=== PATIENT | female | born 1965 | race Caucasian/White ===

== ENCOUNTER 2017-04-18 02:17 | Emergency (ER) | payer MEDICAID, SELFPAY ==
[2017-04-18 02:19] VITALS: BP 120/78; PULSE 96; RESP 16; TEMP 36.8; O2SAT 96; BMI 29.5
--- NOTE | 2017-04-18 02:33 | XR_ITS ---
XR chest portable Patient Age: 51 years: Female HISTORY: ITS.REASON: CHEST PAIN Chest pain started yesterday previous cardiac stents. Smoker. TECHNIQUE: AP portable upright chest COMPARISON : Previous portable CXR film January 2017. Also May 2016. 2 view CXR FINDINGS The lungs appear well expanded and clear with no active disease.. Elsa and mediastinal structures satisfactory. The heart appears slightly larger than previous study but within WNL & upper normal size. Lung markings are slightly more evident towards the bases but this is similar to previous studies with nothing definitely acute quality assurance monitor body leads are in place. No vascular congestion. No CHF. No pleural effusion. No pneumothorax. Chest wall unremarkable... A chest film IMPRESSION: - Stable chest nothing definitely acute . Heart upper normal size.
[2017-04-18 02:46] LABS: Basophils # 0.1 K/mm3 (0-0.2); Basophils % 0.6 % (0.1-2.0); Eosinophils # 0.1 K/mm3 (0.0-0.4); Eosinophils % 1.2 % (0.1-12.0); Hematocrit 43.6 % (37.0-47.0); Lymphocytes # 2.9 K/mm3 (0.7-4.5); Lymphocytes % 35.2 K/mm3 (10-50); Mean Corpuscular HGB Conc 34.3 g/dL (31.8-35.4); Mean Corpuscular Hemoglobin 30.7 pg (27.0-31.2); Mean Corpuscular Volume 89.4 fl (81-99); Mean Platelet Volume 8.9 fl (7.4-10.4); Monocytes # 0.5 K/mm3 (0.1-1.0); Monocytes % 5.5 % (1.7-9.3); Neutrophils # 4.7 K/mm3 (1.8-7.8); Neutrophils % 57.5 % (37.0-80.0); Platelet Count 200 K/mm3 (142-424); Red Blood Count 4.88 M/mm3 (4.20-5.40); Red Cell Distribution Width 13.1 % (11.5-17.5); White Blood Count 8.2 K/mm3 (4.8-10.8)
--- NOTE | 2017-04-18 03:05 | PC.NURSE ---
CRITICAL LAB VALUE RECIEVED FROM COLETTE LOYOLA IN LAB. GLUCOSE 412. DR PROCTOR NOTIFIED
[2017-04-18 03:12] LABS: Alanine Aminotransferase 29 U/L (12-78); Albumin Level 3.4 gm/dL (3.4-5.0); Alkaline Phosphatase 96 U/L (46-116); Anion Gap 12.9 mEq/L (5-15); Aspartate Amino Transferase 14 U/L (15-37); Bilirubin,Total 0.4 mg/dL (0.2-1.0); Blood Urea Nitrogen 14 mg/dL (7-18); CKMB Relative Index 3.4 U/L (0-4.0); Calcium 8.3 mg/dL (8.5-10.1); Carbon Dioxide 28 mmol/L (21.0-32.0); Chloride 98 mmol/L (98-107); Creatine Kinase 47 U/L (26-192); Creatine Kinase MB 1.6 mg/ml (0.0-3.6); Creatinine Clearance Estimated 96 mL/min (0-300); Creatinine,Serum 0.87 mg/dL (0.55-1.02); Estimated Glomerular Filt Rate 69 ml/min (>60); GFR (African American) 84 ML/MIN (>60); Globulin 3.4 gm/dl (1.3-3.2); Potassium 3.9 mmoL/L (3.5-5.1); Sodium 135 mmol/L (136-145); Total Protein,Serum 6.8 gm/dL (6.4-8.2); Troponin I 0.03 ng/ml (0.00-0.06)
[2017-04-18 03:14] LABS: Glucose 412 mg/dL (74-106)
--- NOTE | 2017-04-18 03:49 | HMH.EDCP ---
ED Disposition Clinical Impression: Chest pain Qualifiers: Chest pain type: precordial pain Qualified Code(s): R07.2 - Precordial pain Diabetes Qualifiers: Diabetes mellitus type: type 1 Diabetes mellitus complication status: with unspecified complications Qualified Code(s): E10.8 - Type 1 diabetes mellitus with unspecified complications Disposition: Home, Self-Care Condition on Discharge: Good Instructions: DI for Chest Pain Additional Instructions: see card wednesday 900 am Referrals: Ervin Alexander MD [Primary Care Provider] - - Critical Care Critical Care Time: No Attestation: On 04/18/17, the high probability of a clinically significant, sudden or life threatening deterioration of the following system(s) required my full and direct attention, intervention and personal management. The time I documented below is in addition to time spent performing reported procedures but includes the following listed in this critical care notation. Medical Decision Making - Medical Records Medical records reviewed: Yes: I reviewed the patient's medical records. Vital Signs: 04/18/17 02:19 Temperature 98.3 F Temperature Source Oral Pulse Rate [Right Radial] 96 H Respiratory Rate 16 Blood Pressure [Right Arm] 120/78 Blood Pressure Mean [Right Arm] 92 Blood Pressure Source [Right Arm] Automatic Cuff Blood Pressure Position [Right Arm] Supine 02 Sat by Pulse Oximetry 96 Oxygen Delivery Method Room Air - Lab Data Lab results reviewed: Yes: I reviewed the patient's lab results. Lab Results 04/18/17 02:37: WBC 8.2, RBC 4.88, Hgb 15.0, Hct 43.6, MCV 89.4, MCH 30.7, MCHC 34.3, RDW 13.1, Plt Count 200, MPV 8.9, Neut % (Auto) 57.5, Lymph % (Auto) 35.2, [place] % (Auto) 5.5, Eos % (Auto) 1.2, Baso % (Auto) 0.6, Neut # (Auto) 4.7, Lymph # (Auto) 2.9, [place] # (Auto) 0.5, Eos # (Auto) 0.1, Baso # (Auto) 0.1 04/18/17 02:37: Sodium 135 L, Potassium 3.9, Chloride 98, Carbon Dioxide 28, Anion Gap 12.9, BUN 14, Creatinine 0.87, Estimated Creat Clear 96, Estimated GFR 69, Est GFR ( Amer) 84, Glucose 412 H*, Calcium 8.3 L, Total Bilirubin 0.4, AST 14 L, ALT 29, Alkaline Phosphatase 96, Total Creatine Kinase 47, CK-MB (CK-2) 1.6, CK-MB (CK-2) Rel Index 3.4, Troponin I 0.03, Total Protein 6.8, Albumin 3.4, Globulin 3.4 H, Albumin/Globulin Ratio 1.0 L Result diagrams: 04/18/17 02:37 04/18/17 02:37 Orders (Tests/Meds): ED MEDICATIONS Discontinued Medications Generic Name Dose Route Start Last Admin Trade Name Freq PRN Reason Stop Dose Admin Promethazine HCl 12.5 mg 04/18/17 04:02 04/18/17 04:09 Phenergan 25mg/Ml 1ml Vial IV 04/18/17 04:03 12.5 mg ONCE ONE Administration Sodium Chloride 25 ml 04/18/17 04:02 Sod Chloride 0.9% 25ml Bag IV 04/18/17 04:03 ONCE ONE ORDERS Category Date Time Status XR chest portable Stat Exams 04/18/17 02:33 Taken ECG Request by /Nse Stat Y 04/18/17 02:33 Ordered - Radiology Data #1 Image(s): Chest Image Reviewed: Yes I reviewed the patient's radiology image Preliminary Findings: Normal/NAD - ECG Data Tracing #1 I reviewed this ECG and interpreted as documented below: Normal Sinus Rhythm: Yes Ischemic changes: non-specific ST-T wave changes - [place] Inquiry Pt receiving controlled substance: No Chest Pain HPI - General Chief Complaint: Chest Pain Stated Complaint: CHEST PAIN Time Seen by Provider: 04/18/17 03:49 Mode of Arrival: Ambulatory Source of Information: Patient, Significant Other, Medical Record Limitations: No Limitations Description of Symptoms (Recalled from ER Triage Doc. by RN): CHEST PAIN , NAUSEA,sob - History of Present Illness HPI narrative: this wf with episode of chest pain and sob this am - she has had stents in past - MD complaint: chest pain indicative of cardiac Onset (ago): hour(s) Duration: now resolved Activity at onset: during rest Pain location: substernal Severity: moderate Quality
--- NOTE | 2017-04-18 04:00 | ED_ITS ---
ED Disposition Clinical Impression: Chest pain Qualifiers: Chest pain type: precordial pain Qualified Code(s): R07.2 - Precordial pain Diabetes Qualifiers: Diabetes mellitus type: type 1 Diabetes mellitus complication status: with unspecified complications Qualified Code(s): E10.8 - Type 1 diabetes mellitus with unspecified complications Disposition: Home, Self-Care Condition on Discharge: Good Instructions: DI for Chest Pain Additional Instructions: see card wednesday 900 am Referrals: Ervin Alexander MD [Primary Care Provider] - - Critical Care Critical Care Time: No Attestation: On 04/18/17, the high probability of a clinically significant, sudden or life threatening deterioration of the following system(s) required my full and direct attention, intervention and personal management. The time I documented below is in addition to time spent performing reported procedures but includes the following listed in this critical care notation. Medical Decision Making - Medical Records Medical records reviewed: Yes: I reviewed the patient's medical records. Vital Signs: 04/18/17 02:19 Temperature 98.3 F Temperature Source Oral Pulse Rate [Right Radial] 96 H Respiratory Rate 16 Blood Pressure [Right Arm] 120/78 Blood Pressure Mean [Right Arm] 92 Blood Pressure Source [Right Arm] Automatic Cuff Blood Pressure Position [Right Arm] Supine 02 Sat by Pulse Oximetry 96 Oxygen Delivery Method Room Air - Lab Data Lab results reviewed: Yes: I reviewed the patient's lab results. Lab Results 04/18/17 02:37: WBC 8.2, RBC 4.88, Hgb 15.0, Hct 43.6, MCV 89.4, MCH 30.7, MCHC 34.3, RDW 13.1, Plt Count 200, MPV 8.9, Neut % (Auto) 57.5, Lymph % (Auto) 35.2 , [place] % (Auto) 5.5, Eos % (Auto) 1.2, Baso % (Auto) 0.6, Neut # (Auto) 4.7, Lymph # (Auto) 2.9, [place] # (Auto) 0.5, Eos # (Auto) 0.1, Baso # (Auto) 0.1 04/18/17 02:37: Sodium 135 L, Potassium 3.9, Chloride 98, Carbon Dioxide 28, Anion Gap 12.9, BUN 14, Creatinine 0.87, Estimated Creat Clear 96, Estimated GFR 69, Est GFR ( Amer) 84, Glucose 412 H*, Calcium 8.3 L, Total Bilirubin 0.4, AST 14 L, ALT 29, Alkaline Phosphatase 96, Total Creatine Kinase 47, CK-MB (CK-2) 1.6, CK-MB (CK-2) Rel Index 3.4, Troponin I 0.03, Total Protein 6.8, Albumin 3.4, Globulin 3.4 H, Albumin/Globulin Ratio 1.0 L Result diagrams: 04/18/17 02:37 04/18/17 02:37 Orders (Tests/Meds): ED MEDICATIONS Discontinued Medications Generic Name Dose Route Start Last Admin Trade Name Freq PRN Reason Stop Dose Admin Promethazine HCl 12.5 mg 04/18/17 04:02 04/18/17 04:09 Phenergan 25mg/Ml 1ml Vial IV 04/18/17 04:03 12.5 mg ONCE ONE Administration Sodium Chloride 25 ml 04/18/17 04:02 Sod Chloride 0.9% 25ml Bag IV 04/18/17 04:03 ONCE ONE ORDERS Category Date Time Status XR chest portable Stat Exams 04/18/17 02:33 Taken ECG Request by /Nse Stat Y 04/18/17 02:33 Ordered - Radiology Data #1 Image(s): Chest Image Reviewed: Yes I reviewed the patient's radiology image Preliminary Findings: Normal/NAD - ECG Data Tracing #1 I reviewed this ECG and interpreted as documented below: Normal Sinus Rhythm: Yes Ischemic changes: non-specific ST-T wave changes - [place] Inquiry Pt receiving controlled substance: No [place]
[2017-04-18 04:39] VITALS: BP 116/83; PULSE 91; RESP 18; O2SAT 97
[2017-04-18 04:47] VITALS: BP 146/79; PULSE 82; RESP 18; TEMP 37.1; O2SAT 99
== END 2017-04-18 04:49 | disposition home or self-care (01) ==
PROVIDERS: Emergency Provider Emergency Medicine; Family Provider Emergency Medicine; PCP Emergency Medicine
DX: R07.2 Precordial pain (principal); E10.8 Type 1 diabetes mellitus with unspecified complications; Z79.84 Long term (current) use of oral hypoglycemic drugs; I10 Essential (primary) hypertension; F17.210 Nicotine dependence, cigarettes, uncomplicated
CPT/HCPCS: 71045; 80053; 82550; 82553; 84484; 85025; 93005; 93041; 96374; 99283

== ENCOUNTER → 2017-06-18 14:37 | Outpatient (REF) | payer MEDICAID, SELFPAY | LOC: LAB 14:37 | PROVIDERS: Visit Provider Nurse Practitioner Family | DX: R30.0 Dysuria (principal) | CPT/HCPCS: 87086 ==

== ENCOUNTER → 2018-06-10 12:33 | Outpatient (CLI) | payer MEDICAID, SELFPAY ==
--- NOTE | 2018-06-10 12:43 | US_ITS ---
US Arterial Ankle Brachial Ind History: Claudication, smoker ORDERING PHYSICIAN: Tatiana Almazan PATIENT AGE: 53 years TECHNIQUE: Segmental pressures obtained of both right and left leg. These are compared to brachial blood pressure to yield index at each level sampled including summary FAISAL. The data sheets from the procedure are available in PACS FINDINGS Rest study only performed today No prior studies available for comparison. Blood pressures reported are in millimeters mercury. RIGHT LEG FAISAL = 1.1. RIGHT LEG TBI=.6 Brachial BP: 123 Thigh BP: 137 Calf BP: 128 Ankle PT: 130 Ankle DP : 100 Digit =78 LEFT LEG FAISAL = 1.1 LEFT LEG TBI= .6 Brachial BPD: 117 Thigh BP: 149 Calf BP: 128 Ankle PT:139 Ankle DP: 71 Digit = 68 Pulses and waveforms: Waveforms are normal. The dorsalis views both are slightly diminished IMPRESSION: The ABIs as reported above are within normal limits. Waveforms are also unremarkable. The dorsalis pedis pulses are diminished.
== END ==
PROVIDERS: PCP Nurse Practitioner Family; Visit Provider Nurse Practitioner Family
DX: I70.213 Atherosclerosis of native arteries of extremities with intermittent claudication, bilateral legs (principal)
CPT/HCPCS: 93922

== ENCOUNTER → 2018-09-27 12:49 | Outpatient (CLI) | payer MEDICAID, SELFPAY ==
[2018-09-27 13:08] LABS: Basophils # 0.1 K/mm3 (0-0.2); Basophils % 0.7 % (0.1-2.0); Eosinophils # 0.2 K/mm3 (0.0-0.4); Eosinophils % 1.8 % (0.1-12.0); Hematocrit 40.9 % (37.0-47.0); Hemoglobin 13.4 g/dL (12.2-16.2); Lymphocytes # 2.2 K/mm3 (0.7-4.5); Lymphocytes % 25.5 % (10-50); Mean Corpuscular HGB Conc 32.7 g/dL (31.8-35.4); Mean Corpuscular Hemoglobin 28.8 pg (27.0-31.2); Mean Platelet Volume 8.5 fl (7.4-10.4); Monocytes # 0.4 K/mm3 (0.1-1.0); Monocytes % 4.8 % (1.7-9.3); Neutrophils # 5.9 K/mm3 (1.8-7.8); Neutrophils % 67.2 % (37.0-80.0); Platelet Count 270 K/mm3 (142-424); Red Blood Count 4.65 M/mm3 (4.20-5.40); Red Cell Distribution Width 13.4 % (11.5-17.5); White Blood Count 8.7 K/mm3 (4.8-10.8)
[2018-09-27 13:16] LABS: Anion Gap 16.4 mEq/L (5-15); Blood Urea Nitrogen 22 mg/dL (7-18); Calcium 8.8 mg/dL (8.5-10.1); Carbon Dioxide 26 mmol/L (21.0-32.0); Chloride 99 mmol/L (98-107); Creatinine,Serum 1.52 mg/dL (0.55-1.02); Estimated Glomerular Filt Rate 36 ml/min (>60); GFR (African American) 44 ML/MIN (>60); Glucose 128 mg/dL (74-106); Potassium 4.4 mmoL/L (3.5-5.1); Sodium 137 mmol/L (136-145)
--- NOTE | 2018-09-27 14:23 | CT_ITS ---
CT soft tissue neck w con CLINICAL INDICATION: Neck mass ITS.REASON: Gland Enlargement ORDERING PHYSICIAN: Jeison Ramos MD PATIENT AGE: 53 years COMPARISON: None TECHNIQUE: Contrast Used: Axial images obtained with sagittal and coronal reformats. All CT scans at the facility use one or more dose reduction, viz: automated exposure control, ma/kV adjustment per patient size (including targeted exams where dose is matched to indication, i.e. head), or iterative reconstruction technique. FINDINGS: Scattered small lymph nodes are present in the neck. No dominant adenopathy. A BB is placed along the left aspect of the neck to divina the palpable abnormality. There is mild prominence of the adipose tissue deep to the placed BB and there is a small submandibular lymph node just anterior to the placed BB measuring 15 x 9 mm. There is mild prominence of the nasopharyngeal mucosa but no obvious mass. The tonsils are also somewhat prominent on both sides. The epiglottis, glottic region, and subglottic area have an unremarkable appearance as does the thyroid gland. The parotid glands are somewhat prominent on both sides left slightly greater than right. Submandibular glands have an unremarkable appearance. There are mild degenerative changes in the cervical spine. IMPRESSION: 1. No suspicious mass is evident. A small lymph node in the submandibular areas present just anterior to the placed BB in the left neck and may be represent the palpable abnormality. No dominant adenopathy. 2. Prominent parotid glands on both sides left slightly greater than right without discrete mass
== END ==
PROVIDERS: PCP Nurse Practitioner Family; Visit Provider Otolaryngology
DX: K11.1 Hypertrophy of salivary gland (principal)
CPT/HCPCS: 36415; 70491; 80048; 85025; Q9967

== ENCOUNTER 2021-06-11 09:44 | Emergency (ER) | payer MEDICAID, SELFPAY ==
[2021-06-11 09:45] VITALS: BP 129/73; PULSE 110; RESP 16; TEMP 36.8; O2SAT 100; BMI 19.5
--- NOTE | 2021-06-11 10:00 | HMH.EDGENADL ---
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 Follow-up with Dr. Rodriguez, call his office today to make an appointment. He will follow up with your parasite test on your stool. Prescriptions: Gabapentin 300 mg PO BID #30 cap Transmission Status: Received by [facility] Referrals: Ervin Alexander MD [Staff Physician] - - Critical Care Critical Care Time: No Attestation: On 06/11/21, the high probability of a clinically significant, sudden or life threatening deterioration of the following system(s) required my full and direct attention, intervention and personal management. The time I documented below is in addition to time spent performing reported procedures but includes the following listed in this critical care notation. Medical Decision Making - Medical Records Medical records reviewed: Yes: I reviewed the patient's medical records. MR Comment: Reviewed prior prescription history. Filled prescription for ivermectin 03/05/2021. Filled prescription for fluconazole on 04/30/2021. - [place] Inquiry Pt receiving controlled substance: No Vital Signs: 06/11/21 09:45 06/11/21 10:31 06/11/21 12:27 Temperature 98.3 F 98.2 F Temperature Source Oral Oral Pulse Rate 111 H 70 Pulse Rate [Right] 110 H Respiratory Rate 16 20 16 Blood Pressure 131/107 H 137/87 Blood Pressure [Right Arm] 129/73 Blood Pressure Mean 112 Blood Pressure Mean [Right Arm] 91 Blood Pressure Source Automatic Cuff Blood Pressure Source [Right Arm] Automatic Cuff Blood Pressure Position Sitting Blood Pressure Position [Right Arm] Sitting 02 Sat by Pulse Oximetry 100 98 Oxygen Delivery Method Room Air Room Air - Lab Data Lab Results 06/11/21 09:50: Urine Color Yellow, Urine Appearance Clear, Urine pH 5.5, Ur Specific Luck 1.010, Urine Protein Negative, Urine Glucose (UA) 3+, Urine Ketones Negative, Urine Blood 1+, Urine Nitrate Negative, Urine Bilirubin Negative, Urine Urobilinogen 0.2, Ur Leukocyte Esterase Negative, Urine WBC Occasional, Ur Squamous Epith Cells 5-10, Amorphous Sediment Trace, Urine Bacteria 1+ 06/11/21 09:50: Urine Opiates Screen Negative, Urine Methadone Screen Negative, Ur Barbituates Screen Negative, Ur Phencyclidine Scrn Negative, Ur Amphetamines Screen Positive H, U Benzodiazepines Scrn Negative, Urine Cocaine Screen Negative, U Marijuana (THC) Screen Negative 06/11/21 10:40: WBC 9.5, RBC 4.76, Hgb 14.6, Hct 42.5, MCV 89.2, MCH 30.7, MCHC 34.4, RDW 14.2, Plt Count 265, MPV 9.3, Neut % (Auto) 69.3, Lymph % (Auto) 22.7, [place] % (Auto) 4.7, Eos % (Auto) 1.5, Baso % (Auto) 1.8, Neut # (Auto) 6.6, Lymph # (Auto) 2.2, [place] # (Auto) 0.5, Eos # (Auto) 0.1, Baso # (Auto) 0.2, Total Counted 100, Neutrophils % (Manual) 67, Lymphocytes % (Manual) 30, Monocytes % (Manual) 3, Platelet Estimate Normal, RBC Morphology Normal 06/11/21 10:40: Sodium 130 L, Potassium 4.1, Chloride 93 L, Carbon Dioxide 26, Anion Gap 15.1 H, BUN 19 H, Creatinine 0.70, Estimated Creat Clear 82, Estimated GFR 87, Est GFR ( Amer) 106, Glucose 487 H*, Calcium 9.5, Total Bilirubin 1.5 H, AST 24, ALT 23, Alkaline Phosphatase 160 H, Total Protein 7.3, Albumin 4.6, Globulin 2.7, Albumin/Globulin Ratio 1.7 06/11/21 10:40: Plasma/Serum Alcohol < 10 06/11/21 10:40: TSH 2.42, Free T4 Index 3.2 L, Thyroxine (T4) 9.9, T3 Uptake 32 06/11/21 11:48: POC Glucose 263 H Result diagrams: 06/11/21 10:40 06/11/21 10:40 Orders (Tests/Meds): ED MEDICATIONS Discontinued Medications Gene
[2021-06-11 10:05] LABS: Microscopic, Urine URINE MICROSCOPIC (MICROSCOPIC)
[2021-06-11 10:21] LABS: Appearance,Urine CLEAR (Clear); Bilirubin,Urine Negative (Negative); Blood, Urine 1+ (Negative); Color,Urine YELLOW (Yellow); Glucose,Urine (UA) 3+ (Negative); Ketones,Urine Negative (Negative); Leukocyte Esterase,Urine Negative (Negative); Nitrate,Urine Negative (Negative); PH,Urine 5.5 (5.0-8.5); Protein,Urine Negative (Negative); Urobilinogen,Urine 0.2 EU/dl (0.2)
[2021-06-11 10:31] VITALS: BP 131/107; PULSE 111; RESP 20; O2SAT 98
[2021-06-11 10:40] LABS: WBC,Urine Occasional #/hpf (0-3)
[2021-06-11 10:41] LABS: Amorphous Sediment,Urine Trace /lpf; Bacteria,Urine 1+ /lpf
[2021-06-11 10:47] LABS: MANUAL DIFFERENTIAL MANUAL DIFFERENTIAL (MANUAL DIFF)
[2021-06-11 10:53] LABS: Basophils # 0.2 K/mm3 (0-0.2); Basophils % 1.8 % (0.1-2.0); Eosinophils # 0.1 K/mm3 (0.0-0.4); Eosinophils % 1.5 % (0.1-12.0); Hematocrit 42.5 % (37.0-47.0); Hemoglobin 14.6 g/dL (12.2-16.2); Lymphocytes # 2.2 K/mm3 (0.7-4.5); Lymphocytes % 22.7 % (10-50); Mean Corpuscular HGB Conc 34.4 g/dL (31.8-35.4); Mean Corpuscular Hemoglobin 30.7 pg (27.0-31.2); Mean Corpuscular Volume 89.2 fl (81-99); Mean Platelet Volume 9.3 fl (7.4-10.4); Monocytes # 0.5 K/mm3 (0.1-1.0); Monocytes % 4.7 % (1.7-9.3); Neutrophils # 6.6 K/mm3 (1.8-7.8); Neutrophils % 69.3 % (37.0-80.0); Platelet Count 265 K/mm3 (142-424); Red Blood Count 4.76 M/mm3 (4.20-5.40); Red Cell Distribution Width 14.2 % (11.5-17.5); White Blood Count 9.5 K/mm3 (4.8-10.8)
--- NOTE | 2021-06-11 10:55 | PC.NURSE ---
PT resting in bed. Updated her on POC. No new needs at this time
[2021-06-11 11:03] LABS: Ethyl Alcohol < 10 mg/dl (0-10)
[2021-06-11 11:04] LABS: Alanine Aminotransferase 23 U/L (12-78); Albumin Level 4.6 g/dl (3.5-5.0); Albumin/Globulin Ratio 1.7 (1.1-1.8); Alkaline Phosphatase 160 U/L (38-126); Anion Gap 15.1 mEq/L (5-15); Aspartate Amino Transferase 24 U/L (14-36); Bilirubin,Total 1.5 mg/dl (0.2-1.3); Blood Urea Nitrogen 19 mg/dl (7-17); Calcium 9.5 mg/dl (8.4-10.2); Carbon Dioxide 26 mmol/L (22.0-30.0); Chloride 93 mmol/L (98-107); Creatinine Clearance Estimated 82 mL/min (50-200); Estimated Glomerular Filt Rate 87 ml/min (>60); GFR (African American) 106 ML/MIN (>60); Globulin 2.7 g/dL (1.3-3.2); Potassium 4.1 mmoL/L (3.5-5.1); Sodium 130 mmol/L (136-145); Total Protein,Serum 7.3 g/dl (6.3-8.2)
[2021-06-11 11:05] LABS: Opiate Screen,Urine Negative ng/ml (<300); Phencyclidine Screen,Urine Negative ng/ml (<25)
[2021-06-11 11:06] LABS: Glucose 487 mg/dl (74-100)
--- NOTE | 2021-06-11 11:06 | PC.NURSE ---
Ebony from lab called with Glucose of 487. Repeated and verified with lab. Notified
[2021-06-11 11:10] LABS: Amphetamine/Metha Screen,Urine Positive ng/ml (<1000)
[2021-06-11 11:11] LABS: Barbiturates Screen,Urine Negative ng/ml (<200)
[2021-06-11 11:12] LABS: Benzodiazepines Screen,Urine Negative ng/ml (<200)
[2021-06-11 11:13] LABS: Cannabinoid Screen,Urine Negative ng/ml (<50)
[2021-06-11 11:14] LABS: Cocaine Screen,Urine Negative ng/ml (<300)
[2021-06-11 11:15] LABS: Methadone Screen,Urine Negative ng/ml (<300)
[2021-06-11 11:16] LABS: Lymphocytes % 30 % (10-50); Monocytes % 3 % (2-9); Neutrophils % 67 % (42-76); Total Cells Counted 100
[2021-06-11 11:17] LABS: Platelet Estimate Normal; RBC Morphology Normal
[2021-06-11 11:23] LABS: Free Thyroxine Index 3.2 ug/dL (5.93-13.13); T4 (Thyroxine) 9.9 ug/dl (5.53-11.0); Triiodothryronine (T3) Uptake 32 % (23.5-40.5)
[2021-06-11 11:37] LABS: Thyroid Stimulating Hormone 2.42 uIU/mL (0.465-4.68)
--- NOTE | 2021-06-11 11:50 | PC.NURSE ---
Dr Stock speaking with Dr Rodriguez
--- NOTE | 2021-06-11 11:50 | PC.NURSE ---
glucose check was 263 done by livia
[2021-06-11 11:56] LABS: POC Glucose,Bedside 263 (70-110)
[2021-06-11 12:27] VITALS: BP 137/87; PULSE 70; RESP 16; TEMP 36.8; O2SAT 98
== END 2021-06-11 12:28 | disposition home or self-care (01) ==
PROVIDERS: Emergency Provider Emergency Medicine; PCP Nurse Practitioner Family
DX: F22 Delusional disorders (principal); E13.42 Other specified diabetes mellitus with diabetic polyneuropathy; J44.9 Chronic obstructive pulmonary disease, unspecified; F41.8 Other specified anxiety disorders; K21.9 Gastro-esophageal reflux disease without esophagitis; I25.10 Atherosclerotic heart disease of native coronary artery without angina pectoris; E78.5 Hyperlipidemia, unspecified; I10 Essential (primary) hypertension; M81.0 Age-related osteoporosis without current pathological fracture; F17.210 Nicotine dependence, cigarettes, uncomplicated; Z88.0 Allergy status to penicillin; Z79.899 Other long term (current) drug therapy
CPT/HCPCS: 80053; 80305; 81001; 82962; 84436; 84443; 84479; 85007; 85014; 85018; 85048; 85049; 87177; 96374; 99284

== ENCOUNTER → 2022-02-17 10:36 | Outpatient (CLI) | payer MEDICAID, SELFPAY ==
[2022-02-17 18:54] LABS: Basophils # 0.1 K/mm3 (0-0.2); Basophils % 1.6 % (0.1-2.0); Eosinophils # 0.2 K/mm3 (0.0-0.4); Eosinophils % 3.4 % (0.1-12.0); Hematocrit 45.7 % (37.0-47.0); Hemoglobin 14.8 g/dL (12.2-16.2); Lymphocytes # 2.3 K/mm3 (0.7-4.5); Lymphocytes % 42.8 % (10-50); Mean Corpuscular HGB Conc 32.3 g/dL (31.8-35.4); Mean Corpuscular Hemoglobin 29.1 pg (27.0-31.2); Mean Corpuscular Volume 89.8 fl (81-99); Mean Platelet Volume 10.6 fl (7.4-10.4); Monocytes # 0.3 K/mm3 (0.1-1.0); Monocytes % 5.5 % (1.7-9.3); Neutrophils # 2.5 K/mm3 (1.8-7.8); Neutrophils % 46.7 % (37.0-80.0); Platelet Count 306 K/mm3 (142-424); Red Blood Count 5.09 M/mm3 (4.20-5.40); Red Cell Distribution Width 13.7 % (11.5-17.5); White Blood Count 5.4 K/mm3 (4.8-10.8)
[2022-02-17 19:01] LABS: Alanine Aminotransferase 16 U/L (12-78); Albumin/Globulin Ratio 1.5 (1.1-1.8); Alkaline Phosphatase 163 U/L (38-126); Anion Gap 9.9 mEq/L (5-15); Aspartate Amino Transferase 21 U/L (14-36); Blood Urea Nitrogen 11 mg/dl (7-17); Calcium 9.5 mg/dl (8.4-10.2); Carbon Dioxide 29 mmol/L (22.0-30.0); Chloride 100 mmol/L (98-107); Estimated Glomerular Filt Rate 104 ml/min (>60); GFR (African American) 126 ML/MIN (>60); Globulin 2.6 g/dL (1.3-3.2); Glucose 300 mg/dl (74-100); Potassium 3.9 mmoL/L (3.5-5.1); Sodium 135 mmol/L (136-145); Total Protein,Serum 6.6 g/dl (6.3-8.2)
[2022-02-17 19:26] LABS: Hemoglobin A1C 11.5 % (4.0-6.0)
== END ==
PROVIDERS: PCP Nurse Practitioner Family; Visit Provider Nurse Practitioner Family
DX: E11.9 Type 2 diabetes mellitus without complications (principal); Z79.4 Long term (current) use of insulin
CPT/HCPCS: 80053; 83036; 85025

== ENCOUNTER 2024-03-22 23:13 | Emergency (ER) | payer MEDICAID, SELFPAY ==
[2024-03-22] VITALS (7 sets, daily range): BP systolic 167–196; BP diastolic 110–125; PULSE 105–138; RESP 15–29; TEMP 36; O2SAT 96–100; BMI 19.3
--- NOTE | 2024-03-22 23:10 | ECG_ITS ---
APPROVED REPORT Exam: Resting ECG HR:115 bpm ECG Measurements Heart Rate 115 AXES AL 134 P 80 QRSd 122 QRS 61 QT 353 T 79 QTc 421 Conclusion sinus tach, prolonged qrs ABNORMAL RHYTHM ECG UNCONFIRMED REPORT Electronically signed by : JOCELIN WILSON, 03/24/2024 05:39:18
--- NOTE | 2024-03-22 23:14 | CT_ITS ---
PROCEDURE INFORMATION: Exam: CT Pelvis Without Contrast, Skeleton Exam date and time: 03/23/2024 1:06 AM Age: 58 years old Clinical indication: Injury or trauma; Additional info: Fall, found down TECHNIQUE: Imaging protocol: Computed tomography of the pelvis without contrast. Exam focused on the skeleton. Radiation optimization: All CT scans at this facility use at least one of these dose optimization techniques: automated exposure control; mA and/or kV adjustment per patient size (includes targeted exams where dose is matched to clinical indication); or iterative reconstruction. COMPARISON: CT LUMBAR SPINE WO CON 03/23/2024 1:04 AM FINDINGS: Intestine: There is large volume stool throughout the colon. Urinary bladder: There is a Devine catheter place within the urinary bladder. There is mild bladder wall thickening, nonspecific. Bones/joints: There is diffuse osseous demineralization. There is diffuse degenerative disease of the visualized osseous structures. No acute osseous injury is identified. The degree of demineralization is such that underlying nondisplaced fractures are difficult to exclude. Soft tissues: There are calcifications within the buttocks which most likely reflect injection granulomas. IMPRESSION: 1. No acute osseous injury is identified. 2. The degree of demineralization is such that underlying nondisplaced fractures are difficult to exclude. 3. If clinical concern persists, MRI would be suggested.
--- NOTE | 2024-03-22 23:14 | CT_ITS ---
PROCEDURE INFORMATION: Exam: CT Cervical Spine Without Contrast Exam date and time: 03/23/2024 12:56 AM Age: 58 years old Clinical indication: Injury or trauma; Additional info: Fall, found down TECHNIQUE: Imaging protocol: Computed tomography of the cervical spine without contrast. Radiation optimization: All CT scans at this facility use at least one of these dose optimization techniques: automated exposure control; mA and/or kV adjustment per patient size (includes targeted exams where dose is matched to clinical indication); or iterative reconstruction. COMPARISON: CT CERVICAL SPINE WO CON 03/23/2024 12:56 AM FINDINGS: Bones: There are moderate degenerative changes of the spine. Endplate osteophytes and facet arthropathy. Multilevel disc space narrowing. No severe spinal canal narrowing. No fracture or dislocation. Lungs: Lung apices are normal. Soft tissues: Unremarkable. IMPRESSION: No acute findings. DJD.
--- NOTE | 2024-03-22 23:14 | CT_ITS ---
PROCEDURE INFORMATION: Exam: CT Thoracic Spine Without Contrast Exam date and time: 03/23/2024 1:01 AM Age: 58 years old Clinical indication: Injury or trauma; Additional info: Fall, found down TECHNIQUE: Imaging protocol: Computed tomography of the thoracic spine without contrast. Radiation optimization: All CT scans at this facility use at least one of these dose optimization techniques: automated exposure control; mA and/or kV adjustment per patient size (includes targeted exams where dose is matched to clinical indication); or iterative reconstruction. COMPARISON: 1. CT CERVICAL SPINE WO CON 03/23/2024 12:56 AM 2. CR CXR2V XR chest 2V 03/27/2018 8:47 AM FINDINGS: Tubes, catheters and devices: Endotracheal tube extends in the mid trachea. Bones/joints: There is an age-indeterminate compression deformity of T11. There is multilevel degenerative change with loss of intervertebral disc space. There is diffuse osseous demineralization. Soft tissues: Unremarkable. Lungs: There is some consolidation in the left lower lobe the may be atelectatic and correlation with ventilation function is suggested. There are areas of subpleural reticulation throughout the visualized lungs which are nonspecific. Coronary arteries: There is moderate coronary atherosclerotic disease/calcification although evaluation is limited secondary to the non gated nature of the study. IMPRESSION: 1. There is an age-indeterminate compression deformity of T11. 2. Otherwise, mild multilevel spondylosis.
--- NOTE | 2024-03-22 23:14 | CT_ITS ---
PROCEDURE INFORMATION: Exam: CT Head Without Contrast Exam date and time: 03/23/2024 12:51 AM Age: 58 years old Clinical indication: Injury or trauma; Additional info: Fall, found down TECHNIQUE: Imaging protocol: Computed tomography of the head without contrast. Radiation optimization: All CT scans at this facility use at least one of these dose optimization techniques: automated exposure control; mA and/or kV adjustment per patient size (includes targeted exams where dose is matched to clinical indication); or iterative reconstruction. COMPARISON: NECKW CT soft tissue neck w con 09/27/2018 2:22 PM FINDINGS: Brain: Large area of low attenuation involving portions of the right temporal lobe, frontal lobe and adjacent right basal ganglia. Subtle lobulated hyperdense components particularly involving the right temporal lobe. This presumed focal intraparenchymal hemorrhage is estimated to measure up to 2.4 cm. There is localized mass effect. There is mild duxvq-ab-mdid shift estimated 3 mm. No herniation. Cerebral ventricles: No ventriculomegaly. Compression of the right ventricular system. Paranasal sinuses: Visualized sinuses are unremarkable. No fluid levels. Mastoid air cells: Visualized mastoid air cells are well aerated. Bones: Unremarkable. No acute fracture. Soft tissues: Unremarkable. Vasculature: Slightly hyperdense appearance of the visualized right MCA. IMPRESSION: Constellation of findings may be consistent with an acute hemorrhage however hemorrhagic transformation of a right distribution MCA infarct is also considered given the appearance of the right MCA. Concern for thrombosis of the right MCA M1 segment. CT angiogram is pending.
--- NOTE | 2024-03-22 23:14 | CT_ITS ---
PROCEDURE INFORMATION: Exam: CT Abdomen And Pelvis Without Contrast Exam date and time: 03/23/2024 1:09 AM Age: 58 years old Clinical indication: Injury or trauma; Additional info: Fall, found down TECHNIQUE: Imaging protocol: Computed tomography of the abdomen and pelvis without contrast. Radiation optimization: All CT scans at this facility use at least one of these dose optimization techniques: automated exposure control; mA and/or kV adjustment per patient size (includes targeted exams where dose is matched to clinical indication); or iterative reconstruction. COMPARISON: 1. CT BONY PELVIS 03/23/2024 1:[address] CHEST WO CON 03/23/2024 1:[address] LUMBAR SPINE WO CON 03/23/2024 1:04 AM FINDINGS: Limitations: Evaluation of intra-abdominal contents is limited by a paucity of intraperitoneal fat. Liver: Normal. Gallbladder and biliary ducts: No acute process. Pancreas: Normal. Spleen: Normal. Adrenal glands: The adrenal glands are thickened, a nonspecific finding. Kidneys and ureters: There is nonspecific bilateral perinephric stranding. Stomach and bowel: There is large volume stool throughout the colon. Appendix: No evidence of appendicitis. Intraperitoneal space: Unremarkable. Vasculature: The abdominal aorta and its major branches appear normal without evidence of aneurysm or stenosis. There are pelvic phleboliths. Lymph nodes: No lymphadenopathy. Urinary bladder: There is a Devine catheter place within the urinary bladder. There is moderate distention of the urinary bladder. Reproductive: No acute process. Bones/joints: There is diffuse osseous demineralization. Please see the dedicated interpretation of the spine for findings in that region. Soft tissues: There are calcifications within the buttocks which most likely reflect injection granulomas. Other findings: Please see the dedicated interpretation of the thorax for findings in that region. IMPRESSION: 1. No acute traumatic injury is identified. 2. Please see the dedicated interpretation of the thorax for findings in that region. 3. Otherwise, incidental findings as above.
--- NOTE | 2024-03-22 23:14 | CT_ITS ---
PROCEDURE INFORMATION: Exam: CT Chest Without Contrast; Diagnostic Exam date and time: 03/23/2024 1:09 AM Age: 58 years old Clinical indication: Injury or trauma; Additional info: Fall, found down TECHNIQUE: Imaging protocol: Diagnostic computed tomography of the chest without contrast. Radiation optimization: All CT scans at this facility use at least one of these dose optimization techniques: automated exposure control; mA and/or kV adjustment per patient size (includes targeted exams where dose is matched to clinical indication); or iterative reconstruction. COMPARISON: 1. CR CXR2V XR chest 2V 03/27/2018 8:47 AM 2. CR CXR2V XR chest 2V 12/22/2017 6:43 PM 3. CR CXR1VP XR chest portable 04/18/2017 2:39 AM FINDINGS: Tubes, catheters and devices: There is an endotracheal tube in place, tip projects over the mid trachea. Lungs: There is left basilar atelectasis. Scattered areas of bronchial wall thickening which are likely chronic inflammatory. A few areas of subpleural reticulation are noted, nonspecific. Pleural spaces: Pleural surfaces are smooth, and there are no pleural effusions, pneumothoraces, or pleural plaques noted. Heart: The heart size is within normal limits, and the pericardium appears clear with no signs of pericardial effusion or thickening. Coronary arteries: There is moderate coronary atherosclerotic disease/calcification although evaluation is limited secondary to the non gated nature of the study. There is moderate coronary atherosclerotic disease/calcification although evaluation is limited secondary to the non gated nature of the study. Mediastinal space: The mediastinum appears unremarkable with no evidence of masses, lymphadenopathy, or mediastinal widening. Hilar structures including the major bronchi and vessels appear intact. Lymph nodes: Unremarkable. No enlarged lymph nodes. Vasculature: There is atherosclerotic disease of the visualized aorta and its major branch vessels. Pancreas: There is fatty replacement of the pancreas. Spleen: There are multiple calcifications in the spleen most likely reflects small granulomas. Intraperitoneal space: Please see the dedicated interpretation of abdomen and pelvis for findings in that region. Bones/joints: There is diffuse degenerative disease of the visualized osseous structures. There are acute to subacute left anterior rib fractures involving the 3rd through 5th ribs. There are chronic appearing left posterior rib fractures. Please see the dedicated interpretation of the spine for findings in that region. Soft tissues: Unremarkable. IMPRESSION: 1. There are acute to subacute left anterior rib fractures involving the 3rd through 5th ribs. 2. Please see the dedicated interpretation of abdomen and pelvis for findings in that region.
--- NOTE | 2024-03-22 23:14 | CT_ITS ---
PROCEDURE INFORMATION: Exam: CT Lumbar Spine Without Contrast Exam date and time: 03/23/2024 1:04 AM Age: 58 years old Clinical indication: Injury or trauma; Additional info: Fall, found down TECHNIQUE: Imaging protocol: Computed tomography of the lumbar spine without contrast. Radiation optimization: All CT scans at this facility use at least one of these dose optimization techniques: automated exposure control; mA and/or kV adjustment per patient size (includes targeted exams where dose is matched to clinical indication); or iterative reconstruction. COMPARISON: CT THORACIC SPINE WO CON 03/23/2024 1:01 AM FINDINGS: Bones/joints: There is diffuse osseous demineralization. Please see the dedicated examination of the thoracic spine for findings in that region. There is a diffuse disc bulge at L5-S1 with associated canal narrowing. No acute fracture or subluxation is seen. No aggressive osseous lesion. No evidence of acute spondylolisthesis or vertebral subluxation. Vertebral body heights are generally preserved, but some endplate sclerosis and anterior osteophytes are noted at multiple levels. Narrowing of multiple intervertebral disc spaces observed, indicative of degenerative disc disease. Hypertrophic changes are seen in the facet joints, consistent with osteoarthritis. No fractures or bony lesions identified. No abnormalities seen in adjacent osseous structures. The degree of demineralization is such that underlying nondisplaced fractures are difficult to exclude. Soft tissues: Unremarkable. Other findings: No obvious abnormalities seen in the prevertebral and paravertebral soft tissues. IMPRESSION: 1. Degenerative changes without acute abnormality detected. 2. The degree of demineralization is such that underlying nondisplaced fractures are difficult to exclude. 3. If clinical concern persists, MRI would be suggested.
--- NOTE | 2024-03-22 23:14 | XR_ITS ---
PROCEDURE INFORMATION: Exam: XR Left Shoulder Exam date and time: 03/23/2024 2:10 AM Age: 58 years old Clinical indication: Injury or trauma; Fall; Other: Pain; Additional info: Fall, found down TECHNIQUE: Imaging protocol: Radiologic exam of the left shoulder. Views: 2 or more views. COMPARISON: CT ANGIO CHEST 03/23/2024 1:18 AM FINDINGS: Bones/joints: The glenohumeral joint shows mild joint space narrowing. There are small osteophytes at the joint margins, particularly at the inferior aspect of the humeral head and the glenoid. Subchondral sclerosis is noted at the humeral head and glenoid. The acromioclavicular (AC) joint also demonstrates mild joint space narrowing and small osteophytes. No acute fracture or dislocation is identified. The visualized portions of the ribs, scapula, and clavicle are intact and demonstrate normal bone density. Soft tissues: The soft tissues appear unremarkable. No evidence of significant soft tissue swelling or calcification. IMPRESSION: 1. Mild degenerative changes of the glenohumeral and acromioclavicular joints consistent with early osteoarthritis. 2. No evidence of acute osseous injury or significant soft tissue abnormality.
--- NOTE | 2024-03-22 23:14 | XR_ITS ---
PROCEDURE INFORMATION: Exam: XR Left Knee Exam date and time: 03/23/2024 2:10 AM Age: 58 years old Clinical indication: Injury or trauma; Fall; Other: Pain; Additional info: Fall, found down TECHNIQUE: Imaging protocol: Radiologic exam of the left knee. Views: 3 views. COMPARISON: No relevant prior studies available. FINDINGS: Bones/joints: There is diffuse osseous demineralization. There is tricompartmental osteoarthritis of the knee with loss of joint space, subchondral sclerosis, and productive changes. The osseous structures are intact, with no signs of acute fracture, dislocation, or malalignment. There is no evidence of abnormal bone density or destructive lesions. Soft tissues: The soft tissues appear within normal limits. IMPRESSION: At the time of imaging, the study shows no acute osseous abnormalities but does reveal signs of tricompartmental osteoarthritis.
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
[2024-03-22] MEDS: LACTATED RINGERS 1000ML 1,000 ML 999 ML IV (23:35)
[2024-03-22] MEDS: LORazepam 2MG/ML VIAL 2 MG IV (23:35)
[2024-03-22] MEDS: droPERidol 5MG/2ML VIAL 5 MG IV (23:49)
[2024-03-23] VITALS (28 sets, daily range): BP systolic 114–195; BP diastolic 82–139; PULSE 124–158; RESP 17–25; TEMP 37.1; O2SAT 89–100
[2024-03-23 00:13] LABS: Basophils % 0.3 % (0.1-2.0); Hematocrit 49.9 % (37.0-47.0); Hemoglobin 17.2 g/dL (12.2-16.2); Lymphocytes # 1.3 K/mm3 (0.7-4.5); Lymphocytes % 10.3 % (10-50); Mean Corpuscular HGB Conc 34.5 g/dL (31.8-35.4); Mean Corpuscular Hemoglobin 28.8 pg (27.0-31.2); Mean Corpuscular Volume 83.4 fl (81-99); Mean Platelet Volume 11.6 fl (7.4-10.4); Monocytes # 0.4 K/mm3 (0.1-1.0); Monocytes % 2.8 % (1.7-9.3); Neutrophils # 11.2 K/mm3 (1.8-7.8); Neutrophils % 86.2 % (37.0-80.0); Platelet Count 251 K/mm3 (142-424); Red Blood Count 5.98 M/mm3 (4.20-5.40)
[2024-03-23 00:18] LABS: Lactate Venous 3.6 mmol/L (0.4-2.0); VBG Base Excess -3.2 mmol/L (-2.4-2.3); VBG HCO3 21.9 mmol/L (23-30); VBG Oxygen Saturation 81.8 % (50-70); VBG PCO2 38.1 mmol/L (35-51); VBG PH 7.38 mmol/L (7.31-7.41); VBG PO2 45.2 mmol/L (28-40); VBG Total CO2 23.1 mmol/L (23-27)
[2024-03-23 00:21] LABS: Chloride 94 mmol/L (98-107); Potassium 4.4 mmoL/L (3.5-5.1); Sodium 134 mmol/L (136-145)
[2024-03-23] MEDS: LORazepam 2MG/ML VIAL 2 MG IV (00:21)
[2024-03-23] MEDS: SODIUM CHLORIDE 0.9% 10ML VIAL 10 ML IV (00:21)
[2024-03-23 00:23] LABS: Alanine Aminotransferase 30 U/L (12-78); Anion Gap 18.4 mEq/L (5-15); Aspartate Amino Transferase 44 U/L (14-36); Blood Urea Nitrogen 20 mg/dl (7-17); Carbon Dioxide 26 mmol/L (22.0-30.0); Creatinine Clearance Estimated 108 mL/min (50-200); Estimated Glomerular Filt Rate 128 ml/min (>60); GFR (African American) 154 ML/MIN (>60)
[2024-03-23 00:24] LABS: Alkaline Phosphatase 148 U/L (38-126); Bilirubin,Total 2.8 mg/dl (0.2-1.3); Calcium 9.1 mg/dl (8.4-10.2); Creatine Kinase 179 U/L (30-135); Magnesium 1.2 mg/dl (1.6-2.3)
[2024-03-23 00:25] LABS: Glucose 402 mg/dl (74-100)
--- NOTE | 2024-03-23 00:26 | PC.NURSE ---
Critical glucose of 402 rec. 0026 Reported to Henry marie 0026
[2024-03-23 00:29] LABS: Coronavirus 19, PCR Not Detected (NotDetected); Influenza A, PCR Not Detected (NotDetected); Influenza B, PCR Not Detected (NotDetected); Microscopic, Urine URINE MICROSCOPIC (MICROSCOPIC)
[2024-03-23] MEDS: propofoL 100 ML 3.27 MG IV (00:39)
--- NOTE | 2024-03-23 00:40 | CT_ITS ---
PROCEDURE INFORMATION: Exam: CTA Neck With Contrast Exam date and time: 03/23/2024 1:15 AM Age: 58 years old Clinical indication: Injury or trauma; Additional info: Fall AMS TECHNIQUE: Imaging protocol: Computed tomographic angiography of the neck with contrast. Exam focused on the cervical segments of the vasculature. 3D rendering (Not supervised by radiologist): MIP and/or 3D reconstructed images were created by the technologist. Radiation optimization: All CT scans at this facility use at least one of these dose optimization techniques: automated exposure control; mA and/or kV adjustment per patient size (includes targeted exams where dose is matched to clinical indication); or iterative reconstruction. Contrast material: ISOVUE; Contrast volume: 80 ml; Contrast route: INTRAVENOUS (IV); COMPARISON: NECKW CT soft tissue neck w con 09/27/2018 2:22 PM FINDINGS: Tubes, catheters and devices: Endotracheal tube terminates in the midtrachea. Right common carotid artery: Mild atherosclerotic changes of the right carotid bulb. Right internal carotid artery: Mild atherosclerosis of the right ICA. Right external carotid artery: No occlusion or stenosis of the origin. Left common carotid artery: Mild atherosclerotic changes of the left carotid bulb. Left internal carotid artery: Distal left ICA is tortuous. Left external carotid artery: No occlusion or stenosis of the origin. Right vertebral artery: No stenosis. No dissection or occlusion. Left vertebral artery: No stenosis. No dissection or occlusion. Aorta: Mild atherosclerosis of the aortic arch. Soft tissues: Normal. No significant soft tissue swelling. Bones/joints: DJD. IMPRESSION: No acute findings. Atherosclerotic disease without significant stenosis. REFERENCES: NASCET CRITERIA. The degree of stenosis in the cervical segment of the internal carotid artery is based on NASCET criteria. Normal is no stenosis. Mild is less than 50% stenosis. Moderate is 50-69% stenosis. Severe is 70% to 99% stenosis. Total occlusion is no detectable patent lumen.
--- NOTE | 2024-03-23 00:40 | CT_ITS ---
PROCEDURE INFORMATION: Exam: CTA Head With Contrast, Arteriography Exam date and time: 03/23/2024 1:15 AM Age: 58 years old Clinical indication: Injury or trauma; Additional info: Fall, AMS TECHNIQUE: Imaging protocol: Computed tomographic angiography of the head with contrast. Exam focused on the arteries. 3D rendering (Not supervised by radiologist): MIP and/or 3D reconstructed images were created by the technologist. Radiation optimization: All CT scans at this facility use at least one of these dose optimization techniques: automated exposure control; mA and/or kV adjustment per patient size (includes targeted exams where dose is matched to clinical indication); or iterative reconstruction. Contrast material: ISOVUE; Contrast volume: 80 ml; Contrast route: INTRAVENOUS (IV); COMPARISON: CT HEAD/BRAIN WO CON 03/23/2024 12:51 AM FINDINGS: ANTERIOR CIRCULATION: Right internal carotid artery: Intracranial segment is patent with no significant stenosis. No aneurysm. Right middle cerebral artery: No occlusion or significant stenosis. No aneurysm. Right anterior cerebral artery: No occlusion or significant stenosis. No aneurysm. Left internal carotid artery: Intracranial segment is patent with no significant stenosis. No aneurysm. Left middle cerebral artery: No occlusion or significant stenosis. No aneurysm. Left anterior cerebral artery: No occlusion or significant stenosis. No aneurysm. POSTERIOR CIRCULATION: Right vertebral artery: No occlusion or significant stenosis. No aneurysm. Left vertebral artery: No occlusion or significant stenosis. No aneurysm. Basilar artery: No occlusion or significant stenosis. No aneurysm. Right posterior cerebral artery: origin of the right [employer]ER. Left posterior cerebral artery: origin of the left [employer]ER. Brain: Right sided edema with focal hemorrhage in the right temporal lobe. Mass effect and shift. No signs of active bleeding. Cerebral ventricles: No ventriculomegaly. Bones/joints: Unremarkable. No acute fracture. Soft tissues: Unremarkable. IMPRESSION: 1. No large vessel occlusion. 2. Given the findings identified on this study and the concurrent noncontrast head CT recommend brain MRI with and without contrast
--- NOTE | 2024-03-23 00:40 | CT_ITS ---
PROCEDURE INFORMATION: Exam: CTA Chest With Contrast Exam date and time: 03/23/2024 1:18 AM Age: 58 years old Clinical indication: Injury or trauma; Additional info: Fall, AMS TECHNIQUE: Imaging protocol: Computed tomographic angiography of the chest with contrast. Exam focused on the arteries. 3D rendering (Not supervised by radiologist): MIP and/or 3D reconstructed images were created by the technologist. Radiation optimization: All CT scans at this facility use at least one of these dose optimization techniques: automated exposure control; mA and/or kV adjustment per patient size (includes targeted exams where dose is matched to clinical indication); or iterative reconstruction. Contrast material: ISOVUE; Contrast volume: 80 ml; Contrast route: INTRAVENOUS (IV); COMPARISON: 1. CT CHEST WO CON 03/23/2024 1:09 AM 2. CR CXR2V XR chest 2V 03/27/2018 8:47 AM 3. CR CXR2V XR chest 2V 12/22/2017 6:43 PM FINDINGS: Additional pulmonary angiography images were obtained following the noncontrast portion of the examination. There is good opacification of the pulmonary arterial tree, no pulmonary arterial filling defect is seen. The aorta is normal in caliber without aneurysm or dissection. There is a partially calcified lesion at the apex of the left ventricle measuring 1.7 x 1.3 cm. IMPRESSION: 1. Calcified 1.7 cm lesion at the apex of the left ventricle, echocardiography would be suggested. 2. Good opacification of the pulmonary arterial tree without pulmonary embolus identified. 3. Normal caliber aorta without dissection or aneurysm. 4. Remainder of findings are unchanged from noncontrast study.
--- NOTE | 2024-03-23 00:40 | CT_ITS ---
PROCEDURE INFORMATION: Exam: CTA Abdomen and Pelvis With Contrast Exam date and time: 03/23/2024 1:18 AM Age: 58 years old Clinical indication: Injury or trauma; Additional info: Fall AMS TECHNIQUE: Imaging protocol: Computed tomographic angiography of the abdomen and pelvis with contrast. Exam focused on the arteries. 3D rendering (Not supervised by radiologist): MIP and/or 3D reconstructed images were created by the technologist. Radiation optimization: All CT scans at this facility use at least one of these dose optimization techniques: automated exposure control; mA and/or kV adjustment per patient size (includes targeted exams where dose is matched to clinical indication); or iterative reconstruction. Contrast material: ISOVUE; Contrast volume: 80 ml; Contrast route: INTRAVENOUS (IV); COMPARISON: 1. CT ABDOMEN PELVIS WO CON 03/23/2024 1:[address] BONY PELVIS 03/23/2024 1:[address] ANGIO CHEST 03/23/2024 1:18 AM FINDINGS: Additional arterial phase images of the abdomen and pelvis were obtained. There is a wedge-shaped area of decreased enhancement of the spleen with overlying capsular retraction suggesting a chronic infarct. There is a wedge-shaped area of decreased enhancement of the left kidney in the lower pole, findings are suspected to reflect infarct which is age-indeterminate. The aorta is normal in caliber with extensive atherosclerotic disease. No evidence for aortic dissection. IMPRESSION: 1. Normal caliber aorta with scattered atherosclerotic disease, no evidence for dissection or aneurysm. 2. 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 3. 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 4. Remainder of the examination is unchanged from the noncontrast study performed immediately prior.
[2024-03-23 00:41] LABS: T4 (Thyroxine) 12.6 ug/dl (5.53-11.0)
[2024-03-23 00:47] LABS: Benzodiazepines Screen,Urine Negative ng/ml (<200)
[2024-03-23 00:48] LABS: Barbiturates Screen,Urine Negative ng/ml (<200); Cannabinoid Screen,Urine Negative ng/ml (<50)
[2024-03-23 00:49] LABS: Cocaine Screen,Urine Negative ng/ml (<300)
[2024-03-23 00:50] LABS: Methadone Screen,Urine Negative ng/ml (<300); Opiate Screen,Urine Negative ng/ml (<300)
[2024-03-23 00:51] LABS: Phencyclidine Screen,Urine Negative ng/ml (<25)
[2024-03-23 00:55] LABS: Thyroid Stimulating Hormone 0.88 uIU/mL (0.465-4.68)
[2024-03-23] MEDS: FENTANYL CITRATE/PF 1,000 MCG in 0.9 % SODIUM CHLORIDE 80 ML 1 MCG IV (00:58)
--- NOTE | 2024-03-23 01:01 | PC.NURSE ---
Called radiology for them to [facility] to [facility] immediately
--- NOTE | 2024-03-23 01:05 | PC.NURSE ---
Spoke with [facility] transfer for an immediate transfer, we are awaiting a call back at this time.
--- NOTE | 2024-03-23 01:10 | PC.NURSE ---
pt in ct at this time
--- NOTE | 2024-03-23 01:10 | PC.NURSE ---
INTUBATION NOTE- 0025 PRE OXYGENATING PT AT THIS TIME 0037 ETOMIDATE 20MG GIVEN IV 0037 SUCC 80MG GIVEN IV 0038- PT INTUBATED BY DR WILSON 20CM AT THE LIP, COLOR CHANGE NOTED, BILAT BREATH SOUNDS AUSCULTATED 0039 PROPOFOL STARTED AT 50MCG/KG/MIN 0040 ETCO2 32 SEE VITAL SIGNS
[2024-03-23 01:15] LABS: Appearance,Urine CLEAR (Clear); Bilirubin,Urine Negative (Negative); Blood, Urine 2+ (Negative); Color,Urine YELLOW (Yellow); Glucose,Urine (UA) 3+ (Negative); Ketones,Urine 2+ (Negative); Leukocyte Esterase,Urine Negative (Negative); Nitrate,Urine Negative (Negative); Protein,Urine 2+ (Negative); Specific Gravity, Urine 1.025 (1.005-1.030); Urobilinogen,Urine 0.2 EU/dl (0.2)
[2024-03-23 01:17] LABS: Albumin/Globulin Ratio 1.3 (1.1-1.8)
[2024-03-23 01:17] LABS: Bacteria,Urine 1+ /lpf; RBC,Urine 20-50 #/hpf (0-3)
[2024-03-23 01:24] LABS: Acetone, Serum (Rapid) None Detected (None Detect)
[2024-03-23] MEDS: LACTATED RINGERS 1000ML 1,000 ML 999 ML IV (01:27)
[2024-03-23] MEDS: 0.9 % SODIUM CHLORIDE 50 ML VIAL 100 ML IV (01:31)
[2024-03-23] MEDS: IOPAMIDOL-370 (76%);100ML BOTTLE 160 ML IV (01:31)
[2024-03-23] MEDS: SODIUM CHLORIDE 0.9% 10ML SYR (RAD ONLY) 10 ML IV (01:31)
--- NOTE | 2024-03-23 01:55 | PC.NURSE ---
Dr. Hathaway speaking with [facility] physician at this time
--- NOTE | 2024-03-23 02:55 | PC.NURSE ---
REPORT CALLED TO KASH TRINIDAD AT [facility]
[2024-03-23] MEDS: ETOMIDATE 40MG/20ML VIAL 20 MG IV (03:15)
[2024-03-23] MEDS: SUCCINYLCHOLINE 20MG/ML 10 ML MDV 80 MG IV (03:16)
[2024-03-27 20:17] LABS: Amphetamine Positive (.); Amphetamine (GC/MS) 2891 ng/mL (Cutoff=500); Amphetamines Positive (.); Methamphetamine Positive (.); Methamphetamine (GC/MS) >3000 ng/mL (Cutoff=500)
== END 2024-03-23 02:47 | disposition home or self-care (01) ==
PROVIDERS: Emergency Provider Emergency Medicine
DX: I61.9 Nontraumatic intracerebral hemorrhage, unspecified (principal); S22.42XA Multiple fractures of ribs, left side, initial encounter for closed fracture; R41.82 Altered mental status, unspecified; R00.0 Tachycardia, unspecified; I10 Essential (primary) hypertension; T68.XXXA Hypothermia, initial encounter; W19.XXXA Unspecified fall, initial encounter; Y93.9 Activity, unspecified; Y92.008 Other place in unspecified non-institutional (private) residence as the place of occurrence of the external cause
CPT/HCPCS: 31500; 36415; 51702; 70450; 70496; 70498; 71250; 71275; 72125; 72128; 72131; 72192; 73030; 73562; 74174; 74176; 80053; 80307; 80324; 81001; 82009; 82550; 82803; 83735; 84436; 84443; 85025; 87040; 87636; 93005; 96361; 96374; 96375; 99291; G0480; J0330; J1790; J2060; J2704; J3010; J7120; Q9967